=== PATIENT | female | born 1965 | race Caucasian/White ===

== ENCOUNTER 2017-09-24 14:19 | Emergency (ER) | payer OTHER ==
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
[2017-09-24 14:55] VITALS: BP 102/75
--- NOTE | 2017-09-24 15:09 | RAD ---
Indication: Nasal injury. 3 views of the nasal bone demonstrates nasal arch is intact. No fracture is noted. Paranasal sinuses are clear. IMPRESSION: No fracture of the nasal arch is noted. Paranasal sinuses are clear.
== END 2017-09-24 15:55 | disposition home or self-care (01) ==
LOC: UCCORT 14:19
DX: S00.33XA Contusion of nose, initial encounter (principal); W50.0XXA Accidental hit or strike by another person, initial encounter; Y93.89 Activity, other specified; Y92.219 Unspecified school as the place of occurrence of the external cause; Y99.0 Civilian activity done for income or pay; Z88.0 Allergy status to penicillin; Z88.2 Allergy status to sulfonamides
CPT/HCPCS: 70160; 99201; G0463

== ENCOUNTER 2019-05-05 14:58 | Emergency (ER) | payer BC ==
[2019-05-05 15:39] VITALS: BP 94/67
--- NOTE | 2019-05-05 15:51 | UC ---
Eye Complaint HPI - HPI Summary HPI Summary: 53 yo woman with onset of right conjunctival injection 4 days ago, without itching, visual change or discharge. No photophobia. She began using outdated tobramycin drops in both eyes, with persistent redness in both eyes without drainage or itch. 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 - History of Current Complaint Chief Complaint: UCEye Stated Complaint: EYE COMP Time Seen by Provider: 05/05/19 15:40 Hx Obtained From: Patient Hx Last Menstrual Period: 2 weeks ago Onset/Duration: Gradual Onset, Lasting Days Timing: Constant Severity Initially: Mild Severity Currently: Mild Pain Intensity: 0 Location of Injury: Conjunctiva Aggravating Factor(s): Nothing Alleviating Factor(s): Nothing Associated Signs And Symptoms: Positive: Negative - Risk Factors Penetrating Injury Risk Factor: Negative Globe Rupture Risk Factors: Negative Acute Glaucoma Risk Factors: Negative Optic Artery Occlusion Risk Factors: Negative - Allergies/Home Medications Allergies/Adverse Reactions: Allergies Allergy/AdvReac Type Severity Reaction Status Date / Time Penicillins Allergy Rash Verified 05/05/19 15:31 Sulfa (Sulfonamide Allergy Rash Verified 05/05/19 15:31 Antibiotics) PMH/Surg Hx/FS Hx/Imm Hx Previously Healthy: Yes - Surgical History Surgical History: Yes Surgery Procedure, Year, and Place: . breast augmentation - Family History Known Family History: Positive: Non-Contributory - Social History Occupation: Employed Full-time Lives: With Family Alcohol Use: Rare Substance Use Type: None Smoking Status (MU): Never Smoked Tobacco Review of Systems All Other Systems Reviewed And Are Negative: Yes Constitutional: Positive: Negative Skin: Positive: Negative Eyes: Positive: Eye Redness ENT: Positive: Negative Respiratory: Positive: Negative Cardiovascular: Positive: Negative Gastrointestinal: Positive: Negative Genitourinary: Positive: Negative Motor: Positive: Negative Neurovascular: Positive: Negative Musculoskeletal: Positive: Negative Neurological: Positive: Negative Psychological: Positive: Negative Is Patient Immunocompromised?: No Physical Exam Triage Information Reviewed: Yes Appearance: Well-Appearing, No Pain Distress Vital Signs: Initial Vital Signs Temp 96.9 F 05/05/19 15:32 Pulse 76 05/05/19 15:32 Resp 16 05/05/19 15:32 BP 94/67 05/05/19 15:32 Pulse Ox 99 05/05/19 15:32 Eye Exam: Other - JAMEL, no photophobia. Eyes: Positive: Conjunctiva Inflamed - mild injection. Negative: Discharge ENT: Positive: Pharynx normal, TMs normal Neck: Positive: Supple, Nontender, No Lymphadenopathy Respiratory: Positive: Lungs clear, Normal breath sounds Cardiovascular: Positive: RRR, No Murmur Musculoskeletal Exam: Normal Neurological Exam: Normal Psychological Exam: Normal Skin Exam: Normal Eye Complaint Course/Dx - Course Course Of Treatment: Advised discontinuation of drops. Discussed findings suggest either viral or chemical conjunctivitis. Compressing and ketorolac advised. - Differential Dx/Diagnosis Differential Diagnosis/HQI/PQRI: Conjunctivitis, Keratitis Provider Diagnosis: Conjunctivitis Discharge ED - Sign-Out/Discharge Documenting (check all that apply): Patient Departure All imaging exams completed and their final reports reviewed: No Studies - Discharge Plan Condition: Stable Disposition: HOME Patient Education Materials: Conjunctivitis (ED) Referrals: Maya Rocha MD [Primary Care Provider] - Additional Instructions: Findings today suggest a conjunctival irritation that is not bacterial. Compress your eyes with cool cloths and use over the counter Zaditor (ketorolac ) drops 2 drops to both eyes twice daily. It is likely that the redness will resolve within a day or 2. - Billing Disposition and Condition Condition: STABLE Disposition: Home
== END 2019-05-05 16:08 | disposition home or self-care (01) ==
LOC: UCCORT 14:58
DX: H10.9 Unspecified conjunctivitis (principal); Z88.0 Allergy status to penicillin; Z88.2 Allergy status to sulfonamides
CPT/HCPCS: 99212; G0463